=== PATIENT | female | born 1965 | race African-American/Black ===

== ENCOUNTER 2017-07-29 08:26 | Day surgery (SDC) | payer MEDICARE, MEDICAID ==
[~2017-07-29] VITALS: Ht 162.6 cm; Wt 87.3 kg
[~2017-07-29 08:26] MED LIST: ACYC400T PO; AMIT75TA2 PO; BETH10TA2 PO; BLOOD GLUCOSE T1 TES; BUTA1CAP PO; DICY10 PO; DILT0.05 PO; FLUO1TAB3 PO; GLIM1TAB PO; HYDR-3580 PO; HYDR25TA5 PO; METF850T PO; NYST1000 SWISH-SWAL; OMEP40CA2 PO; PROM25TA10 PO; PROP10TA6 PO; REGL10TA5 PO; TRAZ50TA12 PO; VENL37.5 PO; VIST50CA PO
[2017-07-29 08:39] VITALS: BP 125/90; PULSE 111; RESP 20; TEMP 97.5; O2SAT 93
[2017-07-29] MEDS ORDERED: SODIUM CHLOR 0.9% 1000 ML IV SCH (08:45)
[2017-07-29] MEDS ORDERED: RISP2TAB37 PO (08:57)
[2017-07-29] MEDS ORDERED: LIDOCAINE HCL 1% 20 ML VIAL ONE (10:25)
[2017-07-29] MEDS ORDERED: MIDAZOLAM HCL 2 MG/2 ML VIAL ONE (11:01)
--- NOTE | 2017-07-29 11:54 | PD.RAD ---
Post CT Procedure Prog Note Pre Procedure Diagnosis: (1) OVARIAN CYST NEC/NOS Post Procedure Diagnosis: (1) OVARIAN CYST NEC/NOS Procedure Date: Jul 29, 2017 Supervising Radiologist: Josr Peraza Estimated blood loss: minimal Anesthesia: Conscious Sedation Plan of Activity Patient to Unit: ROPU Patient Condition: Good See PACS Report for procedural detail/treatment Drainage Procedure Procedure 1 Imaging Guidance: CT Side: Left Procedure Type: Aspiration Drainage: Suction Fluid Removal (CCs): 110 Fluid Description: Clear, Yellow Additional Detail: partial aspiration of septated cystic lesion in the pelvis. Plan to ROPU for monitoring then discharge in 2 hours. Josr Peraza MD Jul 29, 2017 11:54
[2017-07-29] MEDS ORDERED: HYDROmorphone HCL 2 MG TAB PO PRN (12:00)
[2017-07-29 12:05] VITALS: BP 130/77; PULSE 101; RESP 18; TEMP 97.4; O2SAT 94
[2017-07-29 12:20] VITALS: BP 123/73; PULSE 82; RESP 18; O2SAT 96
[2017-07-29 12:50] VITALS: BP 110/74; PULSE 82; RESP 16; O2SAT 98
[2017-07-29 13:20] VITALS: BP 118/68; PULSE 93; RESP 18; O2SAT 95
--- NOTE | 2017-07-30 08:08 | RADRPT ---
EXAM DATE/TIME: 07/29/2017 11:10 [facility] COMPARISON: No previous studies available for comparison. INDICATIONS : Pelvic cyst SEDATION TIME: 15 minutes MEDICATION(S): 1.) 4 midazolam (Versed) IV 2.) 200 fentanyl (Sublimaze) IV DEVICE(S): 1.) 8 Fr Sukhjinder FLUID: Total volume of 110 cc of clear, yellow fluid was removed. Fluid was sent for laboratory ordered studies. MEDICAL HISTORY : None. SURGICAL HISTORY : None. ENCOUNTER: Initial ACUITY: 1 day PAIN SCORE: 5/10 LOCATION: Left lower quadrant PROCEDURE: 1.) Conscious sedation with continuous EKG and oximetry monitoring. 2.) EKG and oximetry remained stable throughout the procedure. PROCEDURE : CT guided aspiration of a multiseptated lobulated cystic lesion in the midline and left pelvis. The risks, benefits and alternatives to the procedure were explained and verbal and written consent w as obtained. Using automated exposure control and adjustment of the mA and/or kV according to patien t size, radiation dose was kept as low as reasonably achievable to obtain optimal diagnostic quality images. The site was prepped in sterile fashion. Full sterile technique was used, including cap, ma sk, sterile gloves and gown and a large sterile sheet. Hand hygiene and 2% chlorhexidine and/or beta dine/alcohol prep was utilized per protocol for cutaneous antisepsis. The skin and subcutaneous tiss ues were infiltrated with local anesthetic solution. DICOM format image data is available electronic ally for review and comparison. An 18 gauge Haynes needle was utilized to gain access to the cystic lesion using CT guidance. At jaz[address] one of the septations was traversed with the needle. A guidewire was then placed into the cystic l esion and an 8 Setswana and a bar catheter was placed into the cystic lesion over the guidewire. A tota l of 110 cc of clear yellow fluid was removed. Fluid was removed and sent to the lab for cytology. Im aging demonstrates that the 2 most proximal loculated areas were completely aspirated but there is po rtion of the cystic lesion remaining. Post procedure imaging demonstrates the cystic lesion to be in the left pelvis and measure approximately 8.4 x 5.1 cm. It abuts the vaginal apex inferiorly. Patient tolerated the procedure well and there were no immediate complications. CONCLUSION: Uncomplicated aspiration of a multiseptated cystic lesion within the pelvis, as above. 110 cc of shaneka r yellow fluid was removed and sent to the lab for cytologic evaluation. A portion of the cystic lesi on remains and measures approximately 8.4 x 5.1 cm. The entire lesion could not be aspirated given th e multiple septations. Josr Peraza MD on July 30, 2017 at 8:02 Board Certified Radiologist. This report was verified electronically.
== END 2017-07-29 13:52 | disposition home or self-care (01) ==
LOC: HRAD 08:26 → HRIP 08:29 → HRAD 13:52
PROVIDERS: ATTEND Obstetrics & Gynecology Gynecologic Oncology
DX: N94.89 Other specified conditions associated with female genital organs and menstrual cycle (principal)
CPT/HCPCS: 10160; 77012; 88112; 99152; C1729; C1769; J2250; J3010; J7030